=== PATIENT | male | born 1965 | race Caucasian/White ===

== ENCOUNTER 2016-06-04 05:05 | Emergency (ER) | payer SELFPAY ==
[~2016-06-04] VITALS: Ht 165.1 cm; Wt 81.6 kg
--- NOTE | 2016-06-04 05:05 | NUR ---
PT BIB [facility], PREBOOK. TAKEN TO OF
[2016-06-04 05:07] VITALS: BP 156/97
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
--- NOTE | 2016-06-04 05:51 | NUR ---
Dr. Roy evaluating patient
[2016-06-04 05:55] VITALS: BP 144/85
--- NOTE | 2016-06-04 05:55 | NUR ---
PATIENT BIB [facility] POLICE DEPT. PATIENT EXAMINED BY DR. TORRES. PATIENT MEDICALLY CLEARED AND RELEASED IN CUSTODY IN STABLE CONDITION. ORIGINAL PRE-BOOK FORM GIVEN TO OFFICER VANESA.
== END 2016-06-04 05:55 ==
LOC: MED 05:05
DX: Z02.89 Encounter for other administrative examinations (principal); V43.52XA Car driver injured in collision with other type car in traffic accident, initial encounter; Y93.89 Activity, other specified; Y92.89 Other specified places as the place of occurrence of the external cause; Y99.8 Other external cause status